=== PATIENT | female | born 1960 | race Caucasian/White ===

== ENCOUNTER 2018-02-02 11:16 | Inpatient (IN) | payer OTHER ==
[2018-02-02] VITALS (7 sets, daily range): BP systolic 121–148; BP diastolic 64–84
[~2018-02-02] VITALS: Ht 149.9 cm; Wt 53.1 kg
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
--- NOTE | ~2018-02-02 | MORECARE ---
CASE MANAGEMENT DISCHARGE SUMMARY PATIENT: LISANDRA MORALES N UNIT: [id number] ADM DATE: 02/02/18 AGE: 57 : 56 SEX: F ROOM/BED: D.2132 AUTHOR: DAVE KWON PHYSICIAN: REFERRING PHYSICIAN: ALIYAH BOSTON MD DATE OF SERVICE: 02/03/18 Discharge Plan Patient Name: LISANDRA MORALES [facility] : 1960 Planned Disposition: Home Anticipated Discharge Date: Discharge Date: Expected LOS: Initial Reviewer: [id number] Initial Review Date: 02/03/2018 Generated: 02/03/18 6:26 pm DCPIA - Discharge Planning Initial Assessment Updated by [email or web address]: Ricardo Rushing on 02/03/18 5:22 pm * Is the patient Alert and Oriented? Yes * How many steps to enter\exit or inside your home? * PCP NONE JUST MOVED FROM [place] ONE WEEK AGO * Pharmacy [facility] IN [place] NO LOCAL PHARMACY YET IN [place] * Preadmission Environment Home with Family * ADLs Independent * Equipment Rolling Walker Wheelchair * Other Equipment NO MEDICAL EQUIPMENT PROVIDER PREFERENCE * List name and contact numbers for known caregivers / representatives who currently or will assist patient after discharge: DUNCAN MORALES, SON, * Verbal permission to speak to the caregivers and representatives has been obtained from the patient. Yes * Community resources currently utilized None * Please name any agencies selected above. NONE * Additional services required to return to the preadmission environment? No * Can the patient safely return to the preadmission environment? Yes * Has this patient been hospitalized within the prior 30 days at any hospital? No Patient Name: LISANDRA MORALES Page [phone] at 1726 All edits/amendments must be made on the electronic document DICTATION DATE: 02/03/181724 FREIGHT UNLOADER: GUERITA 02/03/181724 RPT#: [id number] DC DATE: STATUS: ADM IN [facility] [address] [place] [address] END OF REPORT
[~2018-02-02 11:16] MED LIST: ASPIRIN325 MG PO; ATIVAN1 MG PO; BP PILL; LISINOPRIL10 MG PO
[2018-02-02] MEDS ORDERED: CARAFATE1 G PO (11:22)
[2018-02-02] MEDS ORDERED: HYDROCHLOROTHIA25 MG PO (11:22)
[2018-02-02] MEDS ORDERED: NEURONTIN 400400 MG PO (11:22)
[2018-02-02] MEDS ORDERED: CARDIZEM CD180 MG PO (11:22)
[2018-02-02] MEDS ORDERED: PROTONIX40 MG PO (11:23)
[2018-02-02] MEDS ORDERED: COUMADIN5 MG PO (11:23)
[2018-02-02] MEDS ORDERED: FERROUS SULFAT325 MG PO (11:23)
[2018-02-02 12:27] LABS: BASOPHILS 0.4 % (0-2); EOSINOPHILS 2.2 % (0-7); HEMATOCRIT 41.5 % (36.0-48.0); HEMOGLOBIN 13.9 g/dL (12-16); LYMPHOCYTES 29.5 % (15-50); MCH 29.8 pg (26.0-34.0); MCHC 33.5 g/dL (31.0-37.0); MCV 88.9 fL (80.0-100.0); MEAN PLATELET VOLUME 11.5 fL (7.4-10.4); MONOCYTES 6.7 % (2-11); NEUTROPHILS 61.2 % (40-80); PLATELET COUNT 150 10x3/uL (130-400); RBC 4.67 10x6/uL (4.00-5.40); RDW 14.4 % (11.5-14.5); WBC 4.7 10x3/uL (4.8-10.8)
[2018-02-02 12:40] LABS: APTT 23.7 SECONDS (22.8-39.4); INR 1.03 (0.85-1.17); PROTIME 13.1 SECONDS (11.6-15.0)
[2018-02-02 12:45] LABS: ALBUMIN 3.2 g/dL (3.4-5.0); ALKALINE PHOSPHATASE 70 U/L (46-116); ALT (SGPT) 21 U/L (10-68); CALC OSMOLALITY 280 mosm/kg (275-300); CALCIUM 8.9 mg/dL (8.5-10.1); CHLORIDE - SERUM 104 mmol/L (98-107); CREATININE - SERUM 0.6 mg/dL (0.6-1.3); GLUCOSE 91 mg/dL (74-106); PROTEIN - SERUM 7.1 g/dL (6.4-8.2); SODIUM 142 mmol/L (136-145); UREA NITROGEN 8 mg/dL (7-18); eGFR NON AFRICAN AMERICAN > 90 mL/min (90-120)
[2018-02-02 13:01] LABS: CKMB 0.9 U/L (0.0-3.6); CREATINE KINASE 44 UL (21-215); MAGNESIUM - SERUM 1.7 mg/dL (1.8-2.4)
[2018-02-02 13:06] LABS: TROPONIN-I < 0.017 ng/mL (0.000-0.060)
[2018-02-03] VITALS (7 sets, daily range): BP systolic 91–194; BP diastolic 46–80; Ht 149.9 cm; Wt 53.1 kg
[2018-02-03 06:15] LABS: BASOPHILS 0.2 % (0-2); EOSINOPHILS 2.3 % (0-7); HEMATOCRIT 34.8 % (36.0-48.0); HEMOGLOBIN 11.3 g/dL (12-16); LYMPHOCYTES 36.9 % (15-50); MCH 29.4 pg (26.0-34.0); MCHC 32.5 g/dL (31.0-37.0); MCV 90.6 fL (80.0-100.0); MONOCYTES 7.2 % (2-11); NEUTROPHILS 53.4 % (40-80); PLATELET COUNT 142 10x3/uL (130-400); RBC 3.84 10x6/uL (4.00-5.40); RDW 14.7 % (11.5-14.5); WBC 4.3 10x3/uL (4.8-10.8)
[2018-02-03 06:57] LABS: ALKALINE PHOSPHATASE 56 U/L (46-116); BILIRUBIN - TOTAL 0.36 mg/dL (0.2-1.3); CALC OSMOLALITY 283 mosm/kg (275-300); CALCIUM 7.7 mg/dL (8.5-10.1); CARBON DIOXIDE 27.1 mmol/L (21.0-32.0); CHLORIDE - SERUM 110 mmol/L (98-107); CKMB 0.4 U/L (0.0-3.6); CREATINE KINASE 24 UL (21-215); GLUCOSE 86 mg/dL (74-106); POTASSIUM - SERUM 3.1 mmol/L (3.5-5.1); PROTEIN - SERUM 5.4 g/dL (6.4-8.2); SODIUM 144 mmol/L (136-145); UREA NITROGEN 8 mg/dL (7-18)
[2018-02-03 06:58] LABS: ALBUMIN 2.3 g/dL (3.4-5.0); ALT (SGPT) 14 U/L (10-68); CREATININE - SERUM 0.8 mg/dL (0.6-1.3); TROPONIN-I < 0.017 ng/mL (0.000-0.060); eGFR NON AFRICAN AMERICAN 78 mL/min (90-120)
[2018-02-03 07:33] LABS: UDS - AMPHET NEGATIVE QUAL (NEGATIVE); UDS - BARB NEGATIVE QUAL (NEGATIVE); UDS - BENZO NEGATIVE QUAL (NEGATIVE); UDS - COCAINE NEGATIVE QUAL (NEGATIVE); UDS - OPIATE NEGATIVE QUAL (NEGATIVE); UDS - PCP NEGATIVE QUAL (NEGATIVE); UDS - THC NEGATIVE QUAL (NEGATIVE)
[2018-02-03 07:39] LABS: APPEARANCE HAZY (CLEAR); BILIRUBIN NEGATIVE (NEGATIVE); COLOR YELLOW (YELLOW); GLUCOSE NEGATIVE (NEGATIVE); KETONE NEGATIVE (NEGATIVE); NITRITE POSITIVE (NEGATIVE); PROTEIN NEGATIVE (NEGATIVE); RED CELLS - URINE 0-5 /hpf (0-5); SPECIFIC GRAVITY 1.025 (1.005-1.020); UROBILINOGEN NORMAL (NORMAL)
[2018-02-03 07:40] LABS: BACTERIA FEW /hpf (NONE SEEN); EPITHELIAL CELLS 0-5 /hpf (0-5)
[2018-02-03 13:23] LABS: % SATURATION 25 % (15-55); IRON 43 ug/dl (35-150); TOTAL IRON BIND CAPACITY 167 ug/dl (260-445); UNSAT IRON BIND CAPACITY 124 ug/dl (150-375)
[2018-02-03 17:23] LABS: T4 THYROXIN - FREE 1.27 ng/dL (0.76-1.46); THYROID STIMULATING HORMONE 1.14 uIU/mL (0.36-3.74)
[2018-02-04 00:10] VITALS: BP 117/62
[2018-02-04 04:00] VITALS: BP 95/56
[2018-02-04 06:11] LABS: BASOPHILS 0.6 % (0-2); EOSINOPHILS 3.3 % (0-7); HEMATOCRIT 38.3 % (36.0-48.0); IMMATURE GRANULOCYTES 0.4 % (0-5); LYMPHOCYTES 33.6 % (15-50); MCH 29.2 pg (26.0-34.0); MCHC 31.3 g/dL (31.0-37.0); MONOCYTES 8.1 % (2-11); PLATELET COUNT 141 10x3/uL (130-400); RBC 4.11 10x6/uL (4.00-5.40); RDW 14.9 % (11.5-14.5); WBC 5.2 10x3/uL (4.8-10.8)
[2018-02-04 06:24] LABS: MCV 93.2 fL (80.0-100.0)
[2018-02-04 06:29] LABS: CALC OSMOLALITY 283 mosm/kg (275-300); CARBON DIOXIDE 25.2 mmol/L (21.0-32.0); CHLORIDE - SERUM 111 mmol/L (98-107); CREATININE - SERUM 0.8 mg/dL (0.6-1.3); GLUCOSE 98 mg/dL (74-106); POTASSIUM - SERUM 5.2 mmol/L (3.5-5.1); SODIUM 142 mmol/L (136-145); eGFR NON AFRICAN AMERICAN 78 mL/min (90-120)
[2018-02-04 06:36] LABS: UREA NITROGEN 14 mg/dL (7-18)
[2018-02-04 07:21] LABS: FOLATE (FOLIC ACID) - SERUM 6.4 ng/mL (>3.0)
[2018-02-04 08:35] VITALS: BP 100/55
[2018-02-04 11:55] VITALS: BP 101/58
[2018-02-04 17:19] VITALS: BP 114/63
[2018-02-04 20:00] VITALS: BP 115/66
[2018-02-05 00:06] VITALS: BP 107/57
[2018-02-05 04:00] VITALS: BP 103/58
[2018-02-05 06:52] LABS: INR 1.8 (0.85-1.17); PROTIME 20.3 SECONDS (11.6-15.0)
[2018-02-05 06:53] LABS: BASOPHILS 0.6 % (0-2); EOSINOPHILS 2.8 % (0-7); HEMATOCRIT 35.9 % (36.0-48.0); HEMOGLOBIN 11.7 g/dL (12-16); IMMATURE GRANULOCYTES 0.4 % (0-5); LYMPHOCYTES 32.7 % (15-50); MCH 29.8 pg (26.0-34.0); MCHC 32.6 g/dL (31.0-37.0); MCV 91.3 fL (80.0-100.0); MEAN PLATELET VOLUME 12.2 fL (7.4-10.4); NEUTROPHILS 56.5 % (40-80); PLATELET COUNT 146 10x3/uL (130-400); RBC 3.93 10x6/uL (4.00-5.40); RDW 14.8 % (11.5-14.5); WBC 4.7 10x3/uL (4.8-10.8)
[2018-02-05 06:59] LABS: CALC OSMOLALITY 281 mosm/kg (275-300); CALCIUM 7.7 mg/dL (8.5-10.1); CARBON DIOXIDE 26.6 mmol/L (21.0-32.0); CHLORIDE - SERUM 109 mmol/L (98-107); CREATININE - SERUM 0.7 mg/dL (0.6-1.3); GLUCOSE 95 mg/dL (74-106); SODIUM 141 mmol/L (136-145); UREA NITROGEN 14 mg/dL (7-18); eGFR NON AFRICAN AMERICAN > 90 mL/min (90-120)
[2018-02-05 07:11] LABS: POTASSIUM - SERUM 3.9 mmol/L (3.5-5.1)
[2018-02-05 08:44] VITALS: BP 121/65
[2018-02-05 12:09] VITALS: BP 117/71
[2018-02-05 20:30] VITALS: BP 129/75
[2018-02-06 00:30] VITALS: BP 104/60
[2018-02-06 04:30] VITALS: BP 111/69
[2018-02-06 06:55] LABS: BASOPHILS 0.4 % (0-2); EOSINOPHILS 3.6 % (0-7); HEMATOCRIT 34.9 % (36.0-48.0); HEMOGLOBIN 11.5 g/dL (12-16); IMMATURE GRANULOCYTES 0.4 % (0-5); LYMPHOCYTES 33.3 % (15-50); MCH 29.8 pg (26.0-34.0); MCV 90.4 fL (80.0-100.0); MEAN PLATELET VOLUME 12.2 fL (7.4-10.4); MONOCYTES 9.2 % (2-11); NEUTROPHILS 53.1 % (40-80); PLATELET COUNT 147 10x3/uL (130-400); RBC 3.86 10x6/uL (4.00-5.40); RDW 14.9 % (11.5-14.5); WBC 4.5 10x3/uL (4.8-10.8)
[2018-02-06 07:04] LABS: CALC OSMOLALITY 282 mosm/kg (275-300); CARBON DIOXIDE 26.1 mmol/L (21.0-32.0); CHLORIDE - SERUM 108 mmol/L (98-107); CREATININE - SERUM 0.7 mg/dL (0.6-1.3); GLUCOSE 95 mg/dL (74-106); POTASSIUM - SERUM 3.8 mmol/L (3.5-5.1); SODIUM 141 mmol/L (136-145); UREA NITROGEN 17 mg/dL (7-18); eGFR NON AFRICAN AMERICAN > 90 mL/min (90-120)
[2018-02-06 07:11] LABS: INR 2.26 (0.85-1.17); PROTIME 24.4 SECONDS (11.6-15.0)
[2018-02-06 08:23] LABS: MAGNESIUM - SERUM 1.5 mg/dL (1.8-2.4); PHOSPHOROUS 2.6 mg/dL (2.5-4.9)
[2018-02-06 10:12] VITALS: BP 168/67
[2018-02-06 11:00] VITALS: BP 114/64
[2018-02-06 15:00] VITALS: BP 123/61
[2018-02-06 20:00] VITALS: BP 109/58
[2018-02-07 05:48] LABS: BASOPHILS 0.5 % (0-2); EOSINOPHILS 4.4 % (0-7); HEMATOCRIT 34.7 % (36.0-48.0); HEMOGLOBIN 11.2 g/dL (12-16); IMMATURE GRANULOCYTES 0.2 % (0-5); LYMPHOCYTES 32.5 % (15-50); MCH 29.4 pg (26.0-34.0); MCHC 32.3 g/dL (31.0-37.0); MCV 91.1 fL (80.0-100.0); MEAN PLATELET VOLUME 12.5 fL (7.4-10.4); MONOCYTES 7.3 % (2-11); NEUTROPHILS 55.1 % (40-80); PLATELET COUNT 140 10x3/uL (130-400); RBC 3.81 10x6/uL (4.00-5.40); RDW 15.3 % (11.5-14.5); WBC 4.1 10x3/uL (4.8-10.8)
[2018-02-07 06:06] LABS: INR 2.64 (0.85-1.17); PROTIME 27.5 SECONDS (11.6-15.0)
[2018-02-07 06:11] VITALS: BP 112/60
[2018-02-07 06:47] LABS: ANION GAP 10.5 mmol/L (8-16); CARBON DIOXIDE 26.1 mmol/L (21.0-32.0); MAGNESIUM - SERUM 1.6 mg/dL (1.8-2.4); POTASSIUM - SERUM 3.6 mmol/L (3.5-5.1)
[2018-02-07 06:48] LABS: CREATININE - SERUM 0.9 mg/dL (0.6-1.3); PHOSPHOROUS 3.4 mg/dL (2.5-4.9)
[2018-02-07 08:36] VITALS: BP 122/71
[2018-02-07 10:22] VITALS: BP 114/63
[2018-02-07 10:24] VITALS: BP 122/71
[2018-02-07 12:16] VITALS: BP 116/65
[2018-02-07 21:09] VITALS: BP 126/64
[2018-02-08 01:23] VITALS: BP 111/61
[2018-02-08 06:15] VITALS: BP 118/71
[2018-02-08 08:00] LABS: BASOPHILS 0.5 % (0-2); EOSINOPHILS 4.3 % (0-7); HEMOGLOBIN 11.3 g/dL (12-16); IMMATURE GRANULOCYTES 0.3 % (0-5); LYMPHOCYTES 30.5 % (15-50); MCH 29.6 pg (26.0-34.0); MCHC 32.3 g/dL (31.0-37.0); MCV 91.6 fL (80.0-100.0); MEAN PLATELET VOLUME 12.3 fL (7.4-10.4); MONOCYTES 8.8 % (2-11); NEUTROPHILS 55.6 % (40-80); PLATELET COUNT 153 10x3/uL (130-400); RBC 3.82 10x6/uL (4.00-5.40); RDW 15.5 % (11.5-14.5); WBC 3.7 10x3/uL (4.8-10.8)
[2018-02-08 08:16] LABS: CALC OSMOLALITY 286 mosm/kg (275-300); CALCIUM 8.2 mg/dL (8.5-10.1); CARBON DIOXIDE 28.2 mmol/L (21.0-32.0); CHLORIDE - SERUM 108 mmol/L (98-107); CREATININE - SERUM 0.7 mg/dL (0.6-1.3); GLUCOSE 95 mg/dL (74-106); MAGNESIUM - SERUM 1.7 mg/dL (1.8-2.4); PHOSPHOROUS 3.5 mg/dL (2.5-4.9); SODIUM 143 mmol/L (136-145); UREA NITROGEN 17 mg/dL (7-18); eGFR NON AFRICAN AMERICAN > 90 mL/min (90-120)
[2018-02-08 08:17] VITALS: BP 108/79
[2018-02-08 09:26] VITALS: BP 124/103
[2018-02-08 13:00] VITALS: BP 123/64
[2018-02-08 15:24] LABS: INR 2.71 (0.85-1.17)
[2018-02-08] MEDS ORDERED: LEVAQUIN750 MG PO (15:39)
== END 2018-02-08 17:26 | DRG 690 ==
LOC: D.ER 11:16 → D.M2 16:00 → D.EDHOLD 16:00 → D.M2 17:13
PROVIDERS: Emergency Medicine; Family Medicine; Internal Medicine Nephrology
DX: N39.0 Urinary tract infection, site not specified (principal); I10 Essential (primary) hypertension; G80.9 Cerebral palsy, unspecified; K21.9 Gastro-esophageal reflux disease without esophagitis; D50.9 Iron deficiency anemia, unspecified; E87.6 Hypokalemia; E83.42 Hypomagnesemia; J45.909 Unspecified asthma, uncomplicated; R53.1 Weakness; Z86.73 Personal history of transient ischemic attack (TIA), and cerebral infarction without residual deficits

== ENCOUNTER 2018-08-07 07:55 | Inpatient (IN) | payer MEDICARE, MEDICAID ==
[~2018-08-07] VITALS: Ht 149.9 cm; Wt 62.1 kg
[~2018-08-07 07:55] MED LIST changes: +CARAFATE1 G PO; +CARDIZEM CD180 MG PO; +COUMADIN5 MG PO; +FERROUS SULFAT325 MG PO; +HYDROCHLOROTHIA25 MG PO; +LEVAQUIN750 MG PO; +NEURONTIN 400400 MG PO; +PROTONIX40 MG PO
[2018-08-07 08:42] LABS: BASOPHILS 0.2 % (0-2); EOSINOPHILS 0.2 % (0-7); HEMATOCRIT 35.4 % (36.0-48.0); HEMOGLOBIN 11.6 g/dL (12-16); IMMATURE GRANULOCYTES 0.2 % (0-5); LYMPHOCYTES 9.8 % (15-50); MCH 27.4 pg (26.0-34.0); MCHC 32.8 g/dL (31.0-37.0); MCV 83.7 fL (80.0-100.0); MEAN PLATELET VOLUME 10.5 fL (7.4-10.4); MONOCYTES 2.6 % (2-11); RBC 4.23 10x6/uL (4.00-5.40); RDW 12.7 % (11.5-14.5); WBC 8.6 10x3/uL (4.8-10.8)
[2018-08-07 08:43] LABS: PLATELET COUNT 304 10x3/uL (130-400)
[2018-08-07 09:08] LABS: INR 1.42 (0.85-1.17); PROTIME 16.8 SECONDS (11.6-15.0)
[2018-08-07 09:28] LABS: ALBUMIN 3.2 g/dL (3.4-5.0); ALKALINE PHOSPHATASE 126 U/L (46-116); ALT (SGPT) 23 U/L (10-68); BILIRUBIN - TOTAL 0.22 mg/dL (0.2-1.3); CALC OSMOLALITY 290 mosm/kg (275-300); CARBON DIOXIDE 32.1 mmol/L (21.0-32.0); CHLORIDE - SERUM 101 mmol/L (98-107); CREATININE - SERUM 0.7 mg/dL (0.6-1.3); GLUCOSE 125 mg/dL (74-106); POTASSIUM - SERUM 3.5 mmol/L (3.5-5.1); PROTEIN - SERUM 7.1 g/dL (6.4-8.2); SODIUM 140 mmol/L (136-145); UREA NITROGEN 42 mg/dL (7-18); eGFR NON AFRICAN AMERICAN 90 mL/min (90-120)
[2018-08-07 10:40] LABS: APPEARANCE HAZY (CLEAR); COLOR STRAW (YELLOW)
[2018-08-07 10:41] LABS: BACTERIA FEW /hpf (NONE SEEN); BILIRUBIN NEGATIVE (NEGATIVE); EPITHELIAL CELLS 0-5 /hpf (0-5); GLUCOSE NEGATIVE (NEGATIVE); KETONE NEGATIVE (NEGATIVE); MUCUS <1+ /lpf (NONE SEEN); NITRITE NEGATIVE (NEGATIVE); PROTEIN NEGATIVE (NEGATIVE); RED CELLS - URINE 0-5 /hpf (0-5); UROBILINOGEN NORMAL (NORMAL); WHITE CELLS - URINE OCC /hpf (0-5)
[2018-08-07 13:18] VITALS: BP 1552/92; BMI 27.7
[2018-08-07 14:33] LABS: HEMATOCRIT 32.3 % (36.0-48.0); HEMOGLOBIN 10.3 g/dL (12-16)
--- NOTE | 2018-08-07 15:16 | NUR ---
RECEIVED PT BACK FROM GI. PT IS ALERT AND ORIENTED, STARTED ON A REG DIET. BED IN LOW POSITION CL IN REACH CONTINUE WITH PLAN OF CARE
[2018-08-07 18:00] VITALS: BP 156/85
--- NOTE | 2018-08-07 19:55 | NUR ---
PT RESTING IN BED. ALERT AND ORIENTED. NO SIGNS OF DISTRESS. BREATHING EVEN AND UNLABORED. PT STATES NO PROBLEMS AT THIS TIME. IV SITE LT AC DRESSING CLEAN DRY AND INTACT. NO SIGNS OF INFECTION. BOWEL SOUNDS ACTIVE. SIGNS OF CEREBRAL PALSY. WILL CONTINUE PLAN OF CARE. CALL LIGHT IN REACH. BED LOWERED AND LOCKED.
[2018-08-07 23:06] LABS: HEMATOCRIT 27.4 % (36.0-48.0); HEMOGLOBIN 8.8 g/dL (12-16)
[2018-08-08 01:06] VITALS: BP 125/72
--- NOTE | 2018-08-08 02:32 | NUR ---
I have reviewed this patient and I concur with the Shift Assessment completed by the Licensed Practical Nurse today this shift.
[2018-08-08 05:05] LABS: BASOPHILS 0.6 % (0-2); EOSINOPHILS 4.4 % (0-7); HEMATOCRIT 27.6 % (36.0-48.0); HEMOGLOBIN 8.8 g/dL (12-16); IMMATURE GRANULOCYTES 0.2 % (0-5); LYMPHOCYTES 36.7 % (15-50); MCH 26.9 pg (26.0-34.0); MCHC 31.9 g/dL (31.0-37.0); MCV 84.4 fL (80.0-100.0); MONOCYTES 5.2 % (2-11); NEUTROPHILS 52.9 % (40-80); RDW 13.1 % (11.5-14.5)
[2018-08-08 05:16] LABS: PLATELET COUNT 237 10x3/uL (130-400); RBC 3.27 10x6/uL (4.00-5.40)
[2018-08-08 05:21] LABS: CALC OSMOLALITY 290 mosm/kg (275-300); CALCIUM 8.2 mg/dL (8.5-10.1); CARBON DIOXIDE 31.8 mmol/L (21.0-32.0); CHLORIDE - SERUM 109 mmol/L (98-107); CREATININE - SERUM 0.7 mg/dL (0.6-1.3); GLUCOSE 91 mg/dL (74-106); POTASSIUM - SERUM 3.1 mmol/L (3.5-5.1); SODIUM 144 mmol/L (136-145); eGFR NON AFRICAN AMERICAN 90 mL/min (90-120)
[2018-08-08 05:25] LABS: UREA NITROGEN 23 mg/dL (7-18)
[2018-08-08 05:56] VITALS: BP 105/59
[2018-08-08 07:06] LABS: % SATURATION 9 % (15-55); IRON 25 ug/dl (35-150); TOTAL IRON BIND CAPACITY 276 ug/dl (260-445); UNSAT IRON BIND CAPACITY 251 ug/dl (150-375)
--- NOTE | 2018-08-08 08:13 | NUR ---
PT RESTING EYES CLOSED NO SIGNS OF DISTRESS NOTED EASY RISE AND FALL OF CHEST, WILL CONTINUE TO MONITOR CL IN REACH
[2018-08-08 09:13] VITALS: BP 120/74
[2018-08-08 12:00] VITALS: BP 110/57
[2018-08-08 14:37] LABS: HEMATOCRIT 29.9 % (36.0-48.0); HEMOGLOBIN 9.4 g/dL (12-16)
[2018-08-08 15:19] VITALS: Ht 149.9 cm; Wt 62.1 kg
--- NOTE | 2018-08-08 16:18 | NUR ---
I have reviewed this patient and I concur with the Shift Assessment completed by the Licensed Practical Nurse today this shift.
--- NOTE | 2018-08-08 19:55 | NUR ---
PT RESTING IN BED. ALERT AND ORIENTED NO SIGNS OF DISTRESS. BREATHING EVEN AND UNLABORED. PT STATES NO PROBLEMS AT THIS TIME. IV SITE LT AC DRESSING CLEAN DRY AND INTACT. NO SIGNS OF INFECTION. BOWEL SOUNDS ACTIVE. SCDS ON. BED LOWERED AND LOCKED. WILL CONTINUE PLAN OF CARE. CALL LIGHT IN REACH.
[2018-08-08 21:14] VITALS: BP 122/68
[2018-08-08 22:41] LABS: HEMATOCRIT 27.4 % (36.0-48.0); HEMOGLOBIN 8.7 g/dL (12-16)
[2018-08-09 01:40] VITALS: BP 107/52
[2018-08-09 05:02] VITALS: BP 108/52
--- NOTE | 2018-08-09 05:55 | NUR ---
I have reviewed this patient and I concur with the Shift Assessment completed by the Licensed Practical Nurse today this shift.
[2018-08-09 06:31] LABS: HEMATOCRIT 25.7 % (36.0-48.0); HEMOGLOBIN 8.1 g/dL (12-16)
--- NOTE | 2018-08-09 08:25 | NUR ---
PT RESTING IN BED. ASSISTED WITH CHANGING PT. TURNED PT TO L SIDE AND OFFLOADED WITH PILLOW. NO S/S OF ACUTE DISTRESS. CL IN PLACE.
[2018-08-09 08:53] VITALS: BP 112/62
[2018-08-09 12:00] VITALS: BP 179/71
[2018-08-09 13:37] LABS: HEMATOCRIT 29.7 % (36.0-48.0); HEMOGLOBIN 9.3 g/dL (12-16)
--- NOTE | 2018-08-09 16:07 | MORECARE ---
CASE MANAGEMENT DISCHARGE SUMMARY PATIENT: LISANDRA MORALES UNIT: [id number] ADM DATE: 08/07/18 AGE: 58 : 56 SEX: F ROOM/BED: D.2236 AUTHOR: DAVE KWON PHYSICIAN: REFERRING PHYSICIAN: SIENA MINA MD DATE OF SERVICE: 08/09/18 Discharge Plan Patient Name: LISANDRA MORALES Facility: [facility]:[place] : 1960 Planned Disposition: [facility] Facility w Plan Readm Anticipated Discharge Date: 08/10/18 Discharge Date: Expected LOS: 3 Initial Reviewer: [email or web address] Initial Review Date: 08/09/2018 Generated: 08/09/18 5:07 pm Comments DCP- Discharge Planning Updated by [email or web address]: Margarita William on 08/09/18 3:[address] Patient Name: LISANDRA MORALES Admission Status: ER Accout number: [id number] Admission Date: 08-07-2018 : 1960 Admission Diagnosis:GASTROINTESTINAL HEMORRHAGE, UNSPECIFIED Attending: SIENA MINA Current LOS: 2 Anticipated DC Date: 08-10-2018 Planned Disposition: [facility] w Plan Readm Primary Insurance: [facility] Discharge Planning Comments: CM met with patient, she is alone in the room. States she has lived at [facility] for about 7 months and at discharge will return to [facility]. States they will transport her back there. States she is mostly wheelchair bound at the [facility]. She asked me to call her son to get her clothes, I did speak with her son per her request and he will get her clothes for her. CM will continue to follow and assist with discharge planning/needs. Drafter: Margarita William External Providers External Provider: [facility] [place] Next Contact Date: Service Request Date: Service Type: Resolution: Reviewer: Comments: Coverage Notice Reviewer: [id number] - Margarita William Notice Issued Date-Time: 08/09/2018 16:04 Notice Type: Patient Choice Letter Notice Delivered To: Patient Relationship to Patient: Self Shop Technician Name: Delivery Method: HAND - Hand Delivered Damaris Days: Prior Verbal Notification: Recipient Understood Notice: Yes Recipient Signature: Yes Med Rec Note Co-signed by Attending: Coverage Notice Comment: LIN for [facility] Patient Name: LISANDRA MORALES Page [phone] at 1607 All edits/amendments must be made on the electronic document DICTATION DATE: 08/09/181605 ARTIFICIAL SNOW MAKING MACHINE OPERATOR: GUERITA 08/09/181605 RPT#: [id number] DC DATE: STATUS: ADM IN [facility] [address] [place] [address] END OF REPORT
--- NOTE | 2018-08-09 16:19 | MORECARE ---
CASE MANAGEMENT DISCHARGE SUMMARY PATIENT: LISANDRA MORALES UNIT: [id number] ADM DATE: 08/07/18 AGE: 58 : 56 SEX: F ROOM/BED: D.2236 AUTHOR: CHERDOC PHYSICIAN: REFERRING PHYSICIAN: SIENA MINA MD DATE OF SERVICE: 08/09/18 Discharge Plan Patient Name: LISANDRA MORALES Facility: [facility]:[place] : 1960 Planned Disposition: [facility] [place] w Plan Readm Anticipated Discharge Date: 08/10/18 Discharge Date: Expected LOS: 3 Initial Reviewer: [email or web address] Initial Review Date: 08/09/2018 Generated: 08/09/18 5:19 pm Comments DCP- Discharge Planning Updated by [id number]: Margarita William on 08/09/18 3:[address] I spoke with nara Egan for [facility], and informed her of anticipated discharge tomorrow. Updated clinical faxed to [facility]. CM will continue to follow and assist with discharge planning/needs. DCP- Discharge Planning Updated by [id number]: Margarita William on 08/09/18 3:[address] Patient Name: LISANDRA MORALES Admission Status: ER Accout number: [id number] Admission Date: 08-07-2018 : 1960 Admission Diagnosis:GASTROINTESTINAL HEMORRHAGE, UNSPECIFIED Attending: SIENA MINA Current LOS: 2 Anticipated DC Date: 08-10-2018 Planned Disposition: [facility] [place] w Plan Readm Primary Insurance[facility] Discharge Planning Comments: CM met with patient, she is alone in the room. States she has lived at [facility] for about 7 months and at discharge will return to [facility]. States they will transport her back there. States she is mostly wheelchair bound at the senior living. She asked me to call her son to get her clothes, I did speak with her son per her request and he will get her clothes for her. CM will continue to follow and assist with discharge planning/needs. Loaf Counter: Margarita William Coverage Notice Reviewer: [id number] - Margarita William Notice Issued Date-Time: 08/09/2018 16:04 Notice Type: Patient Choice Letter Notice Delivered To: Patient Relationship to Patient: Self Culinary Art Teacher Name: Delivery Method: HAND - Hand Delivered Damaris Days: Prior Verbal Notification: Recipient Understood Notice: Yes Recipient Signature: Yes Med Rec Note Co-signed by Attending: Coverage Notice Comment: LIN for [facility] Last DP export: 08/09/18 3:07 p Patient Name: LISANDRA MORALES Page [phone] at 1619 All edits/amendments must be made on the electronic document DICTATION DATE: 08/09/181618 HANDKERCHIEF MAKER: GUERITA 08/09/181618 RPT#: [id number] DC DATE: STATUS: ADM IN [facility] [address] [place] [address] END OF REPORT
[2018-08-09 17:09] VITALS: BP 126/73
--- NOTE | 2018-08-09 18:48 | NUR ---
PT RESTING IN BED. NO S/S OF ACUTE DISTRESS. CL IN PLACE.
[2018-08-09 21:17] VITALS: BP 131/68
[2018-08-09 23:26] LABS: HEMATOCRIT 25.9 % (36.0-48.0); HEMOGLOBIN 8.5 g/dL (12-16)
--- NOTE | 2018-08-09 23:45 | NUR ---
AT [facility]. OF SHIFT REC'D. IN BED LYING ON RIGHT SIDE PLAYING A GAME ON PHONE.DENIES PAIN OR ANY OTHER DISCOMFORT AT PRESENT TIME.WILL CONTINUE TO MONITOR FOR ANY CHGES. AND FOLLOW CURRENT PLAN OF CARE.
[2018-08-10 05:04] VITALS: BP 124/60
[2018-08-10 06:11] LABS: HEMATOCRIT 28.1 % (36.0-48.0)
[2018-08-10 08:58] VITALS: BP 118/76
--- NOTE | 2018-08-10 09:33 | MORECARE ---
CASE MANAGEMENT DISCHARGE SUMMARY PATIENT: LISANDRA OMRALES UNIT: [id number] ADM DATE: 08/07/18 AGE: 58 : 56 SEX: F ROOM/BED: D.2236 AUTHOR: DAVE KWON PHYSICIAN: REFERRING PHYSICIAN: SIENA MINA MD DATE OF SERVICE: 08/10/18 Discharge Plan Patient Name: LSIANDRA MORALES Facility: [facility]:[place] : 1960 Planned Disposition: [facility] Facility w Plan Readm Anticipated Discharge Date: 08/10/18 Discharge Date: Expected LOS: 3 Initial Reviewer: [email or web address] Initial Review Date: 08/09/2018 Generated: 08/10/18 10:33 am Comments DCP- Discharge Planning Updated by [email or web address]: Margarita William on 08/10/18 8:[address] Patient Name: LISANDRA MORALES Encounter No: [id number] : 1960 Primary Insurance: [employer] Anticipated DC Date: 08-10-2018 Planned Disposition: [facility] Facility w Plan Readm External Planned Provider: : DCP follow-up note: Patient and family in agreement with discharge plan. No changes to plan. I spoke with Jnanie Foy and informed of discharge, discharge order, summary, MAR faxed to Jannie. She [facility]. She will be picked up at 1100. I attempted to call her son to tell him she was being discharged today at 11, his mailbox is full and cannot leave a message. I did call him yesterday and told him I anticipated a discharge today and he has brought clothes up here for her to wear back to the [place]. Case management will follow and assist as needed. Margarita William DCP- Discharge Planning Updated by [id number]: Margarita William on 08/09/18 3:[address] I spoke with nara Egan for [facility], and informed her of anticipated discharge tomorrow. Updated clinical faxed to [facility]. CM will continue to follow and assist with discharge planning/needs. DCP- Discharge Planning Updated by [id number]: Margarita William on 08/09/18 3:[address] Patient Name: LISANDRA MORALES Admission Status: ER Accout number: [id number] Admission Date: 08-07-2018 : 1960 Admission Diagnosis:GASTROINTESTINAL HEMORRHAGE, UNSPECIFIED Attending: SIENA MINA Current LOS: 2 Anticipated DC Date: 08-10-2018 Planned Disposition: [facility] Facility w Plan Readm [facility] Discharge Planning Comments: CM met with patient, she is alone in the room. States she has lived at [facility] for about 7 months and at discharge will return to [facility]. States they will transport her back there. States she is mostly wheelchair bound at the [facility]. She asked me to call her son to get her clothes, I did speak with her son per her request and he will get her clothes for her. CM will continue to follow and assist with discharge planning/needs. Blood Tester: Margarita William Coverage Notice Reviewer: [id number] Zoran William Notice Issued Date-Time: 08/09/2018 16:04 Notice Type: Patient Choice Letter Notice Delivered To: Patient Relationship to Patient: Self Sweeper Brush Maker Machine Name: Delivery Method: HAND - Hand Delivered Damaris Days: Prior Verbal Notification: Recipient Understood Notice: Yes Recipient Signature: Yes Med Rec Note Co-signed by Attending: Coverage Notice Comment: LIN for [facility] Reviewer: [email or web address] Zoran William Notice Issued Date-Time: 08/10/2018 9:21 Notice Type: IM Discharge Notice Notice Delivered To: Patient Relationship to Patient: Self Sweeper Brush Maker Machine Name: Delivery Method: HAND - Hand Delivered Damaris Days: Prior Verbal Notification: Recipient Understood Notice: Yes Recipient Signature: Yes Med Rec Note Co-signed by Attending: Coverage Notice Comment: IMM explained, signed, given, copy placed in MR Last DP export: 08/09/18 3:19 p Patient Name: LISANDRA MORALES Page [phone] at 0933 All edits/amendments must be made on the electronic document DICTATION DATE: 08/10/18932 ENAMEL CRACKER: GUERITA 08/10/18932 RPT#: [id number] DC DATE: STATUS: ADM IN [facility] [address] [place] [address] END OF REPORT
--- NOTE | 2018-08-10 12:19 | NUR ---
PT RESTING IN BED NO SIGNS OF DISTRESS. IV TO LEFT FORARM PATENT NO REDNESS OR TENDERNESS. DENIES ANY FUTHER NEED AT THIS TIME. CALL LIGHT IN REACH. BED LOW POSITION. NO FAMILY AT BEDSIDE.
--- NOTE | 2018-08-10 12:20 | NUR ---
DISCHARGE INSTRUCTIONS GIVEN.SEEMS TO UNDERSTAND. IV OUT TIP INTACT. DENIES ANY NEED. LEFT WITH [facility] PERSON TO GO BACK TO [facility].
== END 2018-08-10 12:21 | DRG 392 ==
LOC: D.ER 07:55 → D.MS 10:59 → D.EDHOLD 10:59 → D.MS 11:12
PROVIDERS: Emergency Medicine; Internal Medicine Gastroenterology; ADMIT Legal Medicine; ATTEND Legal Medicine
PROC: 0DJ08ZZ Inspection of Upper Intestinal Tract, Via Natural or Artificial Opening Endoscopic (ICD-10-PCS; principal; 2018-08-07 14:31)
DX: K20.8 Other esophagitis (principal); K92.2 Gastrointestinal hemorrhage, unspecified; I10 Essential (primary) hypertension; K21.9 Gastro-esophageal reflux disease without esophagitis; D64.9 Anemia, unspecified; G80.9 Cerebral palsy, unspecified

== ENCOUNTER 2018-12-08 22:05 | Observation (INO) | payer MEDICARE, MEDICAID ==
[~2018-12-08] VITALS: Ht 149.9 cm; Wt 63.6 kg
--- NOTE | 2018-12-08 22:32 | NUR ---
PT ASSISTED WITH CHANGING BREIF.
[2018-12-08 22:36] LABS: BASOPHILS 0.8 % (0-2); EOSINOPHILS 2.5 % (0-7); HEMATOCRIT 25.6 % (36.0-48.0); IMMATURE GRANULOCYTES 0.2 % (0-5); LYMPHOCYTES 23.8 % (15-50); MCHC 28.1 g/dL (31.0-37.0); MEAN PLATELET VOLUME 9.1 fL (7.4-10.4); MONOCYTES 9.3 % (2-11); NEUTROPHILS 63.4 % (40-80); RBC 4.41 10x6/uL (4.00-5.40); RDW 18.9 % (11.5-14.5)
[2018-12-08 22:38] LABS: HEMOGLOBIN 7.2 g/dL (12-16); MCH 16.3 pg (26.0-34.0); PLATELET COUNT 432 10x3/uL (130-400)
[2018-12-08 22:47] LABS: ALBUMIN 3.6 g/dL (3.4-5.0); ANION GAP 7.5 mmol/L (8-16); BILIRUBIN - TOTAL 0.24 mg/dL (0.2-1.3); CALCIUM 8.6 mg/dL (8.5-10.1); CARBON DIOXIDE 35.1 mmol/L (21.0-32.0); PROTEIN - SERUM 7.9 g/dL (6.4-8.2)
[2018-12-08 22:50] LABS: POTASSIUM - SERUM 2.6 mmol/L (3.5-5.1)
[2018-12-08 23:31] VITALS: BP 130/76
--- NOTE | 2018-12-08 23:50 | NUR ---
PT ASSISTED WITH CHANGING BREIF.
--- NOTE | 2018-12-08 23:58 | NUR ---
OCCULT BLOOD RESULT NEGATIVE.
[2018-12-09] VITALS (8 sets, daily range): BP systolic 118–152; BP diastolic 47–87; Ht 149.9 cm; Wt 63.6 kg
--- NOTE | 2018-12-09 01:06 | NUR ---
PT ASSISTED WITH CHANGING BREIF.
[2018-12-09] MEDS ORDERED: K-DUR20 MEQ PO (02:47)
[2018-12-09] MEDS ORDERED: REQUIP0.25 MG PO (02:49)
[2018-12-09] MEDS ORDERED: ULTRAM50 MG PO (02:49)
[2018-12-09] MEDS ORDERED: CARDIZEM 90 MG90 MG PO (02:50)
[2018-12-09] MEDS ORDERED: FUROSEMIDE20 MG PO (02:52)
[2018-12-09] MEDS ORDERED: MOBIC7.5 MG PO (02:53)
[2018-12-09 04:51] LABS: ANION GAP 5.7 mmol/L (8-16); BILIRUBIN - TOTAL 0.22 mg/dL (0.2-1.3); CALCIUM 8.4 mg/dL (8.5-10.1); CARBON DIOXIDE 35.5 mmol/L (21.0-32.0); CREATININE - SERUM 0.9 mg/dL (0.6-1.3); PROTEIN - SERUM 6.8 g/dL (6.4-8.2)
[2018-12-09 04:56] LABS: POTASSIUM - SERUM 3.2 mmol/L (3.5-5.1)
--- NOTE | 2018-12-09 08:37 | NUR ---
PATIENT IS RESTING QUIETLY AT THIS TIME. SHE CAME IN LAST NIGHT. SHE HAS LOW H AND H. WAITING ON ORDERS.
[2018-12-09 08:42] LABS: % SATURATION 3 % (15-55); IRON 14 ug/dl (35-150); TOTAL IRON BIND CAPACITY 390 ug/dl (260-445); UNSAT IRON BIND CAPACITY 376 ug/dl (150-375)
--- NOTE | 2018-12-09 14:19 | NUR ---
STARTING FIRST UNIT OF PRBC'S NOW. PATIENT IS TOLERATING WELL.
--- NOTE | 2018-12-09 15:59 | NUR ---
UNIT ONE OF TWO PRBC'S IS STILL INFUSING. PATIENT IS TOLERATING WELL.
--- NOTE | 2018-12-09 16:01 | NUR ---
PATIENT WILL BE DISCHARGED AFTER SHE RECIEVES THE BLOOD TRANSFUSION. DISCHARGE ORDER HAS BEEN PLACED. WAITING TO SEE IF IT WILL BE TOO LATE FOR HER TO GO BACK TO THE [facility] WHEN THE SECOND UNIT IS COMPLETE.
--- NOTE | 2018-12-09 17:24 | NUR ---
INFUSING SECOND UNIT OF PRBC NOW.
--- NOTE | 2018-12-09 19:15 | NUR ---
RECEIVED CARE FROM DAY NURSE. SITTING UP IN BED WATCHING TV. REPORTS NO NEEDS AT THIS TIME. CALL LIGHT AT SIDE. IV INFUSING BLOOD PER ORDER TO PATENT LEFT AC.
--- NOTE | 2018-12-09 19:40 | NUR ---
REPORT CALLED TO THE [facility] BLOOD INFUSING.
--- NOTE | 2018-12-09 19:45 | NUR ---
[facility] CALLED FOR TRANSPORT
[2018-12-09 20:06] LABS: HEMATOCRIT 31.7 % (36.0-48.0); HEMOGLOBIN 9.6 g/dL (12-16)
--- NOTE | 2018-12-09 21:15 | NUR ---
IV IN LEFT AC DC'D WITH TIP INTACT.
--- NOTE | 2018-12-09 21:31 | NUR ---
DC'D VIA [facility] AT THIS TIME.
--- NOTE | 2018-12-11 07:54 | MORECARE ---
CASE MANAGEMENT DISCHARGE SUMMARY PATIENT: LISANDRA MORALES N UNIT: [id number] ADM DATE: 12/09/18 AGE: 58 : 56 SEX: F ROOM/BED: D.210 AUTHOR: DAVE KWON PHYSICIAN: REFERRING PHYSICIAN: SIENA MINA MD DATE OF SERVICE: 12/11/18 Discharge Plan Patient Name: LISANDRA MORALES Facility: [facility]:[place] : 1960 Planned Disposition: Home Anticipated Discharge Date: 12/10/18 Discharge Date: 12/09/2018 Expected LOS: 1 Initial Reviewer: [email or web address] Initial Review Date: 12/11/2018 Generated: 12/11/18 8:54 am Patient Name: LISANDRA MORALES Page 45997 at 0754 All edits/amendments must be made on the electronic document DICTATION DATE: 12/11/18 0754 MAGNETIC HEALER: GUERITA 12/11/18 0754 RPT#: [id number] DC DATE:12/09/18 STATUS: DIS IN [facility] [address] [place] [address] END OF REPORT
== END 2018-12-09 21:31 ==
LOC: D.ER 22:05 → D.M2 12-09 00:11 → OBSVTIME 12-09 00:11 → D.M2 12-09 21:31
PROVIDERS: Family Medicine; ADMIT Legal Medicine; ATTEND Legal Medicine
DX: D64.9 Anemia, unspecified (principal); G80.9 Cerebral palsy, unspecified; I10 Essential (primary) hypertension; E87.6 Hypokalemia; K21.9 Gastro-esophageal reflux disease without esophagitis

== ENCOUNTER 2019-04-09 23:55 | Inpatient (IN) | payer MEDICARE, MEDICAID ==
[~2019-04-09] VITALS: Ht 149.9 cm; Wt 68.6 kg
[~2019-04-09 23:55] MED LIST changes: +CARDIZEM 90 MG90 MG PO; +FUROSEMIDE20 MG PO; +K-DUR20 MEQ PO; +MOBIC7.5 MG PO; +REQUIP0.25 MG PO; +ULTRAM50 MG PO
[2019-04-10] VITALS (10 sets, daily range): BP systolic 102–156; BP diastolic 47–72; Ht 149.9 cm; Wt 68.6 kg
[2019-04-10] MEDS ORDERED: RESTORIL7.5 MG PO (00:09)
[2019-04-10] MEDS ORDERED: ROPINIROLE HCL2 MG PO (00:09)
[2019-04-10] MEDS ORDERED: COUMADIN5 MG PO (00:12)
[2019-04-10 00:23] LABS: BASOPHILS 0.9 % (0-2); EOSINOPHILS 1.9 % (0-7); IMMATURE GRANULOCYTES 0.2 % (0-5); LYMPHOCYTES 35.4 % (15-50); MCHC 25.7 g/dL (31.0-37.0); MCV 58.1 fL (80.0-100.0); MEAN PLATELET VOLUME 9.3 fL (7.4-10.4); MONOCYTES 8.2 % (2-11); NEUTROPHILS 53.4 % (40-80); PLATELET COUNT 492 10x3/uL (130-400); RBC 3.29 10x6/uL (4.00-5.40); RDW 20.5 % (11.5-14.5); WBC 4.7 10x3/uL (4.8-10.8)
[2019-04-10 00:26] LABS: ANION GAP 10.8 mmol/L (8-16); CALCIUM 8.7 mg/dL (8.5-10.1); CARBON DIOXIDE 30.7 mmol/L (21.0-32.0); POTASSIUM - SERUM 3.5 mmol/L (3.5-5.1)
[2019-04-10 00:27] LABS: HEMATOCRIT 19.1 % (36.0-48.0); HEMOGLOBIN 4.9 g/dL (12-16); INR 3.21 (0.85-1.17); MCH 14.9 pg (26.0-34.0); PROTIME 32.3 SECONDS (11.6-15.0)
[2019-04-10 00:32] LABS: ALBUMIN 3.4 g/dL (3.4-5.0); BILIRUBIN - TOTAL 0.35 mg/dL (0.2-1.3); PROTEIN - SERUM 7.7 g/dL (6.4-8.2)
--- NOTE | 2019-04-10 00:49 | NUR ---
OCCULT STOOL NEGATIVE.
--- NOTE | 2019-04-10 01:22 | NUR ---
FIRST UNIT OF PRBC INFUSION STARTED AT THIS TIME.
[2019-04-10 01:27] LABS: % SATURATION 2 % (15-55); IRON 14 ug/dl (35-150); TOTAL IRON BIND CAPACITY 479 ug/dl (260-445)
[2019-04-10 01:28] LABS: UNSAT IRON BIND CAPACITY 465 ug/dl (150-375)
--- NOTE | 2019-04-10 02:20 | NUR ---
ADMITTED FROM ER VIA STRETCHER WITH FIRST UNIT OF PACKED RED BLOOD CELLS INFUSING TO BNED LOW AND LOCKED AND CALL LIGHT PROVIDED EFFORT MADE TO PROVIDE COMFORT
--- NOTE | 2019-04-10 05:03 | NUR ---
SECOND UNIT OF PRBC COMPLETED
[2019-04-10 10:10] LABS: BASOPHILS 0.8 % (0-2); EOSINOPHILS 2.8 % (0-7); IMMATURE GRANULOCYTES 0.5 % (0-5); LYMPHOCYTES 17.4 % (15-50); MCH 21.1 pg (26.0-34.0); MCHC 30.6 g/dL (31.0-37.0); MEAN PLATELET VOLUME 9.2 fL (7.4-10.4); MONOCYTES 8.6 % (2-11); NEUTROPHILS 69.9 % (40-80)
[2019-04-10 10:13] LABS: HEMOGLOBIN 10.1 g/dL (12-16); RBC 4.79 10x6/uL (4.00-5.40)
[2019-04-10 10:14] LABS: MCV 68.9 fL (80.0-100.0); PLATELET COUNT 317 10x3/uL (130-400)
[2019-04-10 10:30] LABS: ALKALINE PHOSPHATASE 142 U/L (46-116); ALT (SGPT) 15 U/L (10-68); BILIRUBIN - TOTAL 1.17 mg/dL (0.2-1.3); CALC OSMOLALITY 277 mosm/kg (275-300); CALCIUM 8.3 mg/dL (8.5-10.1); CHLORIDE - SERUM 103 mmol/L (98-107); GLUCOSE 97 mg/dL (74-106); PROTEIN - SERUM 6.7 g/dL (6.4-8.2); SODIUM 139 mmol/L (136-145); UREA NITROGEN 13 mg/dL (7-18)
[2019-04-10 10:36] LABS: CREATININE - SERUM 0.7 mg/dL (0.6-1.3); eGFR NON AFRICAN AMERICAN 90 mL/min (90-120)
[2019-04-10 10:38] LABS: POTASSIUM - SERUM 2.9 mmol/L (3.5-5.1)
--- NOTE | 2019-04-10 11:22 | NUR ---
PATIENT POTASSIUM LOW. ELECTROLYTE PROTOCOL IN PLACE. TREATED. CONCERNED ABOUT A MOLE ON THE MIDDLE OF HER BACK SAYS IT ITCHES AND SHE WOULD LIKE TO HAVE IT REMOVED. CL IN REACH. REQUESTS A MENU TO FILL OUT. NOTIFIED DIETARY. BRANDONTM
[2019-04-10 13:25] LABS: PLATELET ESTIMATE NORMAL
[2019-04-10 13:26] LABS: ANISOCYTOSIS OCC
--- NOTE | 2019-04-10 14:12 | NUR ---
PATIENT SITTING AT A 90 DEGREE ANGLE IN BED. FALL PRECAUTIONS IN PLACE. NO NEEDS AT THIS TIME. CL IN REACH. WCTM
--- NOTE | 2019-04-10 19:10 | NUR ---
PATIENT IN BED WITH EYES OPEN. NO S/S OF DISTRESS. NO COMPLAINTS AT THIS TIME. PATIENT HAS IV IN THE R AC AND L FOREARM. BOTH IVS ARE PATENT WITHOUT REDNESS, SWELLING, OR TENDERNESS. PATIENT IS INCONINTENT. PATIENT'S SPEECH IS SLOW. CALL LIGHT IN PLACE. WILL CONTINUE TO MONITOR.
--- NOTE | 2019-04-10 23:52 | NUR ---
PT LYING IN BED WITH EYES CLOSED. EASILY AWAKEN WITH VERBAL STIMULATION. PT STATES NO COMPLAINTS AT THIS TIME. WILL CONTINUE TO OBSERVE.
[2019-04-11 00:56] VITALS: BP 129/59
--- NOTE | 2019-04-11 05:14 | NUR ---
LYING IN BED RESTING WITH EYES CLOSED. NO SIGNS OR SYMPTOMS OF DISTRESS NOTED. EASILY AWAKEN WITH VERBAL STIMULATION. RESPIRATIONS EVEN AND UNLABORED. NO COMPLAINTS OF PAIN AT THIS TIME. ASSIST WITH REPOSITONING FOR COMFORT. INCONTINENT OF BOWLL AND BLADDER. LAST BOWELL MOVEMENT 04/10/2019. BED IN LOWEST POSITION AND CALL LIGHT IS WITH IN REACH. PT ADVISE TO CALL FOR HELP WHEN NEEDED. WILL CONTINUE TO MONITOR.
[2019-04-11 05:19] VITALS: BP 143/74
[2019-04-11 06:16] LABS: ALBUMIN 2.8 g/dL (3.4-5.0); ALKALINE PHOSPHATASE 135 U/L (46-116); ALT (SGPT) 15 U/L (10-68); CALC OSMOLALITY 283 mosm/kg (275-300); CALCIUM 8.3 mg/dL (8.5-10.1); CHLORIDE - SERUM 107 mmol/L (98-107); CREATININE - SERUM 0.7 mg/dL (0.6-1.3); GLUCOSE 99 mg/dL (74-106); POTASSIUM - SERUM 3.3 mmol/L (3.5-5.1); PROTEIN - SERUM 6.5 g/dL (6.4-8.2); SODIUM 142 mmol/L (136-145); UREA NITROGEN 15 mg/dL (7-18); eGFR NON AFRICAN AMERICAN 90 mL/min (90-120)
[2019-04-11 06:21] LABS: BASOPHILS 0.8 % (0-2); EOSINOPHILS 4.2 % (0-7); HEMATOCRIT 31.2 % (36.0-48.0); HEMOGLOBIN 9.5 g/dL (12-16); IMMATURE GRANULOCYTES 0.2 % (0-5); MCHC 30.4 g/dL (31.0-37.0); MEAN PLATELET VOLUME 9.3 fL (7.4-10.4); MONOCYTES 9.1 % (2-11); NEUTROPHILS 51.7 % (40-80); PLATELET COUNT 351 10x3/uL (130-400); RBC 4.52 10x6/uL (4.00-5.40); RDW 26.3 % (11.5-14.5)
[2019-04-11 06:36] LABS: WBC 5.2 10x3/uL (4.8-10.8)
[2019-04-11 06:40] LABS: INR 1.87 (0.85-1.17); PROTIME 21.3 SECONDS (11.6-15.0)
--- NOTE | 2019-04-11 10:13 | NUR ---
PT INCONTINENT OF URINE. CHANGED OUT LINENS AND CLEANED PT UP. DISCHARGE ORDER NOW PLACED. DISCUSSED WITH PT AND SHE IS EXCITED TO HEAR THIS. WILL BEGIN DISCHARGE PROCESS. NO CURRENT NEEDS. CL IN REACH, BED IN LOWEST, SIDE RAILS X2. WILL CTM.
[2019-04-11 10:38] VITALS: BP 127/53
--- NOTE | 2019-04-11 12:05 | NUR ---
PT INCONTINENT OF URINE. CHANGED LINENS AND REPOSITIONED UP IN BED FOR COMFORT. PT VOICED THANKS AND IS SITTING UP WAITING ON LUNCH. NO CURRENT NEEDS. WILL CTM.
--- NOTE | 2019-04-11 13:05 | MORECARE ---
CASE MANAGEMENT DISCHARGE SUMMARY PATIENT: LISANDRA MORALES N UNIT: [id number] ADM DATE: 04/10/19 AGE: 58 : 56 SEX: F ROOM/BED: D.2110 AUTHOR: DAVE KWON PHYSICIAN: REFERRING PHYSICIAN: SIENA MINA MD DATE OF SERVICE: 04/11/19 Discharge Plan Patient Name: LISANDRA MORALES [facility] [facility] 1960 Planned Disposition: Nursing Facility [facility] Cert Anticipated Discharge Date: 04/11/19 Discharge Date: Expected LOS: 1 Initial Reviewer: [email or web address] Initial Review Date: 04/10/2019 Generated: 04/11/19 2:04 pm External [facility] Next Contact Date: 04/11/2019 Service Request Date: Service Type: Resolution: Reviewer: Comments: Patient Name: LISANDRA MORALES Page [phone] at 1305 All edits/amendments must be made on the electronic document DICTATION DATE: 04/11/19 1304 MASTER SCHEDULER: GUERITA 04/11/19 1304 RPT#: [id number] DC DATE: STATUS: ADM IN [facility] [address] [place] [address] END OF REPORT
--- NOTE | 2019-04-11 14:17 | NUR ---
PT INCONTINENT OF BOWEL AND BLADDER. COMPLETE LINEN CHANGE PROVIDED AND REPOSITIONED PT UP IN BED FOR COMFORT. PT VOICED THANKS. D/C PTS R.FA PIV WITH CATHETER TIP FULLY INTACT. ALSO D/C PTS R.AC PIV WITH CATHETER TIP FULLY INTACT. PT IS WATCHING TV WAITING ON HER DISCHARGE PAPERS AND TRANSPORTATION. NO CURRENT NEEDS. WILL CTM.
--- NOTE | 2019-04-11 15:20 | NUR ---
PT INCONTINENT AGAIN AND LINENS CHANGED. DISCHARGE TEACHING PROVIDED AND PAPERS SIGNED TO PTS BEST ABILITY. PT DENIES ANY CURRENT PAIN OR NEEDS AT THIS TIME. WILL CTM.
--- NOTE | 2019-04-11 16:32 | MORECARE ---
CASE MANAGEMENT DISCHARGE SUMMARY PATIENT: LISANDRA MORALES UNIT: [id number] ADM DATE: 04/10/19 AGE: 58 : 56 SEX: F ROOM/BED: D.4370 AUTHOR: CHER,DOC PHYSICIAN: REFERRING PHYSICIAN: SIENA MINA MD DATE OF SERVICE: 04/11/19 Discharge Plan Patient Name: LISANDRA MORALES Facility: [facility]:[place] : 1960 Planned Disposition: Nursing Facility [facility] Cert Anticipated Discharge Date: 04/11/19 Discharge Date: Expected LOS: 1 Initial Reviewer: [email or web address] Initial Review Date: 04/10/2019 Generated: 04/11/19 5:32 pm Comments DCP- Discharge Planning Updated by [email or web address]: Ricardo Rushing on 04/11/19 3:[address] Patient Name: LISANDRA MORALES Admission Status: ER Accout number: [id number] Admission Date: 04-10-2019 : 1960 Admission Diagnosis: Attending: SIENA MINA Current LOS: 1 Anticipated DC Date: 04-11-2019 Planned Disposition: Nursing Facility [facility] Cert Primary Insurance: [facility] PLANNED EXTERNAL PROVIDER: [facility] [employer]M [employer] [employer]ICAID BED Discharge Planning Comments: CM RECEIVED DISCHARGE ORDERS, SPOKE TO PT IN ROOM. PT LIVES AT THE [facility] AND FEELS SAFE THERE AND WILL RETURN THERE TODAY. SHE IS UP IN WHEELCHAIR AT FACILITY, CAN SIT FOR VAN TRANSPORT TODAY. CHOICE COMPLETED. CM NOTIFIED FLORIDALMA OF THE [facility], WHO VERFIED PULLEY WORKER CARE STATUS AND WILL ARRANGE CHILDCARE ADMINISTRATOR FOR TODAY. CM FAXED DISCHARGE INFORMATION TO [facility] AT [phone]. COUNTER ROLLER NURSE NOTIFIED. NURSE REPORT TO BE CALLED TO THE [facility] AT [phone]. THE [facility] TO ARRANGE VAN TRANSPORATION. Commercial Real Estate Lender: Ricardo Rushing DCPIA - Discharge Planning Initial Assessment Updated by [email or web address]: Ricardo Rushing on 04/11/19 4:27 pm * Is the patient Alert and Oriented? Yes * How many steps to enter\exit or inside your home? NONE * PCP DR. MINA * [facility] * Preadmission Environment Yeast Supervisor Acute Care Facility * Facility Name [facility] * ADLs Partial Dependent * Partial ADLs (Assistance needed) Ambulation Bathing Dressing Medication Management Toileting * Equipment Other * Other Equipment ALL MEDICAL EQUIPMENT PROVIDED BY FACILITY * List name and contact numbers for known caregivers / representatives who currently or will assist patient after discharge: DUNCAN MORALES, IRIS, * Verbal permission to speak to the caregivers and representatives has been obtained from the patient. N/A * Community resources currently utilized None * Please name any agencies selected above. NONE * Additional services required to return to the preadmission environment? No * Can the patient safely return to the preadmission environment? Yes * Has this patient been hospitalized within the prior 30 days at any hospital? No Last DP export: 04/11/19 12:05 p Patient Name: LISANDRA MORALES Page [phone] at 1632 All edits/amendments must be made on the electronic document DICTATION DATE: 04/11/191631 CROP ROLLER: GUERITA 04/11/191631 RPT#: [id number] DC DATE: STATUS: ADM IN [facility] [address] [place] [address] END OF REPORT
--- NOTE | 2019-04-11 17:36 | NUR ---
PTS TRANSPORTATION NOW HERE. PT HAS ALL BELONGINGS AND [facility] STAFF IS HERE TO TAKE HER. NO FURTHER NEEDS. WILL DISCHARGE AT THIS TIME.
== END 2019-04-11 17:45 | DRG 812 ==
LOC: D.ER 23:55 → D.M2 04-10 00:51
PROVIDERS: Family Medicine; ADMIT Legal Medicine; ATTEND Legal Medicine
DX: D64.9 Anemia, unspecified (principal); I10 Essential (primary) hypertension; Z79.01 Long term (current) use of anticoagulants; E87.6 Hypokalemia

== ENCOUNTER 2019-04-13 02:34 | Observation (INO) | payer MEDICARE, MEDICAID ==
[2019-04-13] VITALS (7 sets, daily range): BP systolic 141–167; BP diastolic 73–95; Ht 149.9 cm; Wt 63.5 kg
[~2019-04-13] VITALS: Ht 149.9 cm; Wt 63.5 kg
[~2019-04-13 02:34] MED LIST changes: +RESTORIL7.5 MG PO; +ROPINIROLE HCL2 MG PO
[2019-04-13 03:04] LABS: BASOPHILS 0.2 % (0-2); EOSINOPHILS 0.4 % (0-7); HEMOGLOBIN 11.3 g/dL (12-16); IMMATURE GRANULOCYTES 0.3 % (0-5); LYMPHOCYTES 3.9 % (15-50); MCH 21.2 pg (26.0-34.0); MCHC 30.1 g/dL (31.0-37.0); MCV 70.5 fL (80.0-100.0); MEAN PLATELET VOLUME 9.1 fL (7.4-10.4); MONOCYTES 2.5 % (2-11); NEUTROPHILS 92.7 % (40-80); PLATELET COUNT 397 10x3/uL (130-400); RBC 5.32 10x6/uL (4.00-5.40)
[2019-04-13 03:08] LABS: ANION GAP 10.4 mmol/L (8-16); APTT 25.1 SECONDS (22.8-39.4); POTASSIUM - SERUM 3.4 mmol/L (3.5-5.1)
[2019-04-13 03:09] LABS: CREATININE - SERUM 0.9 mg/dL (0.6-1.3); HEMATOCRIT 37.5 % (36.0-48.0); INR 1.12 (0.85-1.17); PROTIME 14.3 SECONDS (11.6-15.0); WBC 18.4 10x3/uL (4.8-10.8)
[2019-04-13 03:14] LABS: ALBUMIN 3.5 g/dL (3.4-5.0); BILIRUBIN - TOTAL 0.64 mg/dL (0.2-1.3); PROTEIN - SERUM 7.8 g/dL (6.4-8.2)
--- NOTE | 2019-04-13 03:39 | NUR ---
PT GIVEN WARM BLANKETS, DENIES ANY FURTHER NEEDS AT THIS TIME. WILL CONTINUE TO MONITOR.
--- NOTE | 2019-04-13 04:05 | NUR ---
PT STILL ACTIVELY VOMITING COFFEE GROUND EMESIS, EDP NOTIFIED. VERBAL ORDERS FOR 25 MG PHENERGAN IM.
--- NOTE | 2019-04-13 06:45 | NUR ---
NG TUBE REMOVED PER EDP ORDERS. PT TOLERATED WELL.
--- NOTE | 2019-04-13 07:00 | NUR ---
RECEIVED TO ROOM 1212 VIA STRETCHER FROM ER. CAMPOS TO VERBAL STIMULATION. VERY LETHARGIC BUT ANSWERS YES/NO QUESTIONS. SKIN IS INTACT WITHOUT REDNESS. NO C/O NAUSEA AT THIS TIME.
[2019-04-13 09:49] LABS: HEMATOCRIT 31.7 % (36.0-48.0); HEMOGLOBIN 9.4 g/dL (12-16); MCH 21.1 pg (26.0-34.0); MCHC 29.7 g/dL (31.0-37.0); MCV 71.1 fL (80.0-100.0); MEAN PLATELET VOLUME 9.2 fL (7.4-10.4); PLATELET COUNT 310 10x3/uL (130-400); RBC 4.46 10x6/uL (4.00-5.40); WBC 24.3 10x3/uL (4.8-10.8)
[2019-04-13 09:56] LABS: BASOPHILS 0.1 % (0-2); EOSINOPHILS 0 % (0-7); HEMATOCRIT 32.2 % (36.0-48.0); HEMOGLOBIN 9.4 g/dL (12-16); IMMATURE GRANULOCYTES 0.2 % (0-5); LYMPHOCYTES 5.4 % (15-50); MCH 20.8 pg (26.0-34.0); MCHC 29.2 g/dL (31.0-37.0); MCV 71.4 fL (80.0-100.0); MONOCYTES 2.9 % (2-11); NEUTROPHILS 91.4 % (40-80); PLATELET COUNT 305 10x3/uL (130-400); RBC 4.51 10x6/uL (4.00-5.40); WBC 24.2 10x3/uL (4.8-10.8)
--- NOTE | 2019-04-13 10:00 | NUR ---
PURE WICK PLACED FOR PATIENT COMFORT. WILL MONITOR.
[2019-04-13 10:22] LABS: ANISOCYTOSIS OCC; LYMPHOCYTES 5 % (15-50); MONOCYTES 7 % (2-11); NEUTROPHILS 86 % (40-80); PLATELET ESTIMATE NORMAL; POLYCHROMASIA OCC
--- NOTE | 2019-04-13 11:00 | NUR ---
ATTEMPTED TO ROUSE PATIENT. SHE ANSWERS YES/NO BUT WOULDN'T TALK OTHERWISE AT THIS TIME.
[2019-04-13] MEDS ORDERED: COUMADIN5 MG PO ×4 (11:30→15:03)
[2019-04-13] MEDS ORDERED: DILTIAZEM 24HR180 M4 PO ×2 (11:41→15:05)
[2019-04-13 14:49] LABS: HEMATOCRIT 32.4 % (36.0-48.0); HEMOGLOBIN 9.5 g/dL (12-16); MCH 21.1 pg (26.0-34.0); MCHC 29.3 g/dL (31.0-37.0); MEAN PLATELET VOLUME 9.1 fL (7.4-10.4); PLATELET COUNT 305 10x3/uL (130-400); WBC 19.4 10x3/uL (4.8-10.8)
[2019-04-13] MEDS ORDERED: VITAMIN D31000 UNI2 PO (15:02)
[2019-04-13] MEDS ORDERED: FERROUS SULFAT325 MG PO (15:06)
[2019-04-13] MEDS ORDERED: FUROSEMIDE20 MG PO (15:06)
[2019-04-13] MEDS ORDERED: NEURONTIN 400400 MG PO (15:07)
[2019-04-13] MEDS ORDERED: HYDROCHLOROTHIA25 MG PO (15:08)
[2019-04-13] MEDS ORDERED: MOBIC7.5 MG PO (15:08)
[2019-04-13] MEDS ORDERED: PROTONIX40 MG PO (15:09)
[2019-04-13] MEDS ORDERED: KLOR-CON M2020 MEQ PO (15:09)
[2019-04-13] MEDS ORDERED: CARAFATE1 G PO (15:10)
[2019-04-13] MEDS ORDERED: ROPINIROLE HCL2 MG PO (15:10)
[2019-04-13] MEDS ORDERED: ULTRAM50 MG PO (15:11)
[2019-04-13] MEDS ORDERED: RESTORIL7.5 MG PO (15:11)
[2019-04-13 15:16] LABS: LYMPHOCYTES 10 % (15-50); MONOCYTES 1 % (2-11); NEUTROPHILS 89 % (40-80)
[2019-04-13 15:17] LABS: PLATELET ESTIMATE NORMAL; POIKILOCYTOSIS OCC; POLYCHROMASIA OCC
[2019-04-13 15:18] LABS: STOMATOCYTES OCC
--- NOTE | 2019-04-13 19:06 | NUR ---
SITTING UP IN BED EATING SOME OF CLEAR LIQUID SUPPER. DENIES NEEDS.
[2019-04-13 19:20] LABS: BASOPHILS 0.3 % (0-2); EOSINOPHILS 0.8 % (0-7); HEMATOCRIT 32.4 % (36.0-48.0); HEMOGLOBIN 9.6 g/dL (12-16); IMMATURE GRANULOCYTES 0.2 % (0-5); LYMPHOCYTES 10.5 % (15-50); MCH 21.2 pg (26.0-34.0); MCHC 29.6 g/dL (31.0-37.0); MCV 71.5 fL (80.0-100.0); MEAN PLATELET VOLUME 9.6 fL (7.4-10.4); MONOCYTES 4.9 % (2-11); NEUTROPHILS 83.3 % (40-80); PLATELET COUNT 284 10x3/uL (130-400); RBC 4.53 10x6/uL (4.00-5.40); RDW 29.2 % (11.5-14.5); WBC 15.9 10x3/uL (4.8-10.8)
--- NOTE | 2019-04-13 19:20 | NUR ---
REPORT RECEIVED. PT UP IN BED WATCHING TV. RR EVEN AND UNLABORED. EXPRESSES NO NEEDS AT THIS TIME. CALL LIGHT IN REACH. WILL CTM.
--- NOTE | 2019-04-14 00:01 | NUR ---
PT RESTING QUIETY, NO S/SX OF DISTRESS NOTED. WILL CTM.
[2019-04-14 00:30] VITALS: BP 156/69
--- NOTE | 2019-04-14 03:27 | NUR ---
PT RESTING QUIETLY, NO NEEDS EXPRESSED. WILL CTM.
[2019-04-14 04:00] VITALS: BP 122/51
[2019-04-14 07:38] LABS: BASOPHILS 0.6 % (0-2); HEMATOCRIT 34.2 % (36.0-48.0); HEMOGLOBIN 9.8 g/dL (12-16); IMMATURE GRANULOCYTES 0.1 % (0-5); LYMPHOCYTES 12.9 % (15-50); MCHC 28.7 g/dL (31.0-37.0); MCV 73.4 fL (80.0-100.0); MEAN PLATELET VOLUME 9.4 fL (7.4-10.4); MONOCYTES 5.7 % (2-11); NEUTROPHILS 76.7 % (40-80); PLATELET COUNT 267 10x3/uL (130-400); RBC 4.66 10x6/uL (4.00-5.40)
[2019-04-14 08:12] LABS: WBC 8.2 10x3/uL (4.8-10.8)
[2019-04-14 08:18] VITALS: BP 130/75
--- NOTE | 2019-04-14 08:45 | NUR ---
REC'D PT SITTING IN BED RESP EVEN AND UNLABORED LUNG SOUNDS CLEAR REGULAR HEART RATE NOTED NO EDEMA NOTED TO BLE. HOB 30 DEGREES. SRX2 BED AT LOWEST SETTING WITH BRAKES APPLIED CALL LIGHT WITHIN REACH WILL CONTINUE TO MONITOR
[2019-04-14 10:25] LABS: BASOPHILS 0.5 % (0-2); EOSINOPHILS 4.1 % (0-7); HEMATOCRIT 35.7 % (36.0-48.0); HEMOGLOBIN 10.2 g/dL (12-16); IMMATURE GRANULOCYTES 0.3 % (0-5); LYMPHOCYTES 15.1 % (15-50); MCH 21.1 pg (26.0-34.0); MCHC 28.6 g/dL (31.0-37.0); MCV 73.9 fL (80.0-100.0); MONOCYTES 7.2 % (2-11); NEUTROPHILS 72.8 % (40-80); PLATELET COUNT 244 10x3/uL (130-400); RBC 4.83 10x6/uL (4.00-5.40); WBC 7.9 10x3/uL (4.8-10.8)
[2019-04-14 13:43] VITALS: BP 165/86
--- NOTE | 2019-04-14 15:42 | NUR ---
22 G IV TO RIGHT FOREARM REMOVED WITH CATHETER INTACT AT THIS TIME. 20 TO LEFT FOREARM REMOVED WITH CATHETER INTACT AT THIS TIME. CALLED REPORT TO PRISCILLA AT [facility]. [facility] VAN AND EMPLOYEE HERE TO TAKE PT VIA WHEELCHAIR VIA [employer] VEHICLE TO THE [facility].
[2019-04-14 16:00] VITALS: BP 116/60
== END 2019-04-14 16:07 ==
LOC: D.ER 02:34 → D.M3 06:08 → OBSVTIME 06:08 → D.M3 04-14 16:07
PROVIDERS: Emergency Medicine; ADMIT Legal Medicine; ATTEND Legal Medicine
DX: K22.10 Ulcer of esophagus without bleeding (principal); K21.9 Gastro-esophageal reflux disease without esophagitis; D64.9 Anemia, unspecified; I10 Essential (primary) hypertension; R11.10 Vomiting, unspecified

== ENCOUNTER 2019-05-20 08:02 | Emergency (ER) | payer MEDICARE, MEDICAID ==
[~2019-05-20] VITALS: Ht 149.9 cm; Wt 61.4 kg
[~2019-05-20 08:02] MED LIST changes: +DILTIAZEM 24HR180 M4 PO; +KLOR-CON M2020 MEQ PO; +VITAMIN D31000 UNI2 PO
[2019-05-20 08:11] VITALS: Ht 149.9 cm; Wt 61.4 kg
[2019-05-20 08:36] LABS: BASOPHILS 0.4 % (0-2); EOSINOPHILS 2.9 % (0-7); HEMATOCRIT 37.2 % (36.0-48.0); HEMOGLOBIN 11.5 g/dL (12-16); IMMATURE GRANULOCYTES 0.2 % (0-5); LYMPHOCYTES 15.2 % (15-50); MCH 24.8 pg (26.0-34.0); MCHC 30.9 g/dL (31.0-37.0); MCV 80.3 fL (80.0-100.0); MONOCYTES 5.8 % (2-11); NEUTROPHILS 75.5 % (40-80); PLATELET COUNT 273 10x3/uL (130-400); RBC 4.63 10x6/uL (4.00-5.40); WBC 9.3 10x3/uL (4.8-10.8)
[2019-05-20 08:41] LABS: APTT 31.5 SECONDS (22.8-39.4); INR 2.86 (0.85-1.17); PROTIME 29.5 SECONDS (11.6-15.0)
[2019-05-20 08:42] LABS: CALC OSMOLALITY 291 mosm/kg (275-300); CALCIUM 8.5 mg/dL (8.5-10.1); CARBON DIOXIDE 31.4 mmol/L (21.0-32.0); CHLORIDE - SERUM 106 mmol/L (98-107); CREATININE - SERUM 0.7 mg/dL (0.6-1.3); GLUCOSE 112 mg/dL (74-106); POTASSIUM - SERUM 3.9 mmol/L (3.5-5.1); SODIUM 143 mmol/L (136-145); UREA NITROGEN 30 mg/dL (7-18); eGFR NON AFRICAN AMERICAN 90 mL/min (90-120)
[2019-05-20 08:48] LABS: ALBUMIN 2.7 g/dL (3.4-5.0); ALKALINE PHOSPHATASE 146 U/L (30-120); ALT (SGPT) 50 U/L (10-68); BILIRUBIN - TOTAL 0.25 mg/dL (0.2-1.3)
[2019-05-20 10:33] VITALS: BP 130/80
== END 2019-05-20 10:34 | disposition home or self-care (01) ==
LOC: D.ER 08:02
PROVIDERS: Family Medicine
DX: K92.1 Melena (principal); I10 Essential (primary) hypertension; J45.909 Unspecified asthma, uncomplicated; K21.9 Gastro-esophageal reflux disease without esophagitis

== ENCOUNTER → 2020-05-21 11:02 | Outpatient (CLI) | payer MEDICAID ==
[2020-05-05 12:29] VITALS: BMI 26.2
[~2020-05-21 11:02] MED LIST changes: +COLACE100 MG PO; +ROPINIROLE HCL1 MG PO; +VITAMIN D-32000 UNI2 PO
[2020-05-21 11:16] LABS: HEMATOCRIT 30.1 % (36.0-48.0)
[2020-05-21 12:47] LABS: HEMOGLOBIN 8.4 g/dL (12-16)
== END | disposition home or self-care (01) ==
LOC: D.LABREF 11:02
PROVIDERS: ATTEND Legal Medicine
DX: K92.0 Hematemesis (principal)

== ENCOUNTER → 2020-07-08 11:50 | Outpatient (CLI) | payer OTHER, MEDICAID ==
[2020-05-05 12:29] VITALS: BMI 26.2
[2020-07-08 12:02] LABS: BASOPHILS 0.2 % (0-2); EOSINOPHILS 0.4 % (0-7); HEMATOCRIT 37.5 % (36.0-48.0); HEMOGLOBIN 10.5 g/dL (12-16); IMMATURE GRANULOCYTES 0.2 % (0-5); LYMPHOCYTE ABS# 1.21 10x3/uL (1.18-3.74); LYMPHOCYTES 7.1 % (15-50); MCH 21.2 pg (26.0-34.0); MCV 75.8 fL (80.0-100.0); MEAN PLATELET VOLUME 10.9 fL (7.4-10.4); MONOCYTES 4.2 % (2-11); NEUTROPHIL ABS# 14.97 10x3/uL (1.56-6.13); NEUTROPHILS 87.9 % (40-80); PLATELET COUNT 335 10x3/uL (130-400); RBC 4.95 10x6/uL (4.00-5.40); RDW 21.9 % (11.5-14.5)
== END | disposition home or self-care (01) ==
LOC: D.LABREF 11:50
PROVIDERS: ATTEND Legal Medicine
DX: D64.9 Anemia, unspecified (principal)